=== PATIENT | female | born 1995 | race Caucasian/White ===

== ENCOUNTER 2018-10-29 13:43 | Emergency (ER) | payer OTHER ==
[~2018-10-29] VITALS: Ht 157.5 cm; Wt 52.6 kg
[2018-10-29 14:01] VITALS: Ht 157.5 cm; Wt 52.6 kg
[2018-10-29 14:28] LABS: BASOPHIL % 0.2 % (0-2); PLATELET COUNT 236 x10^3mcL (130-400); RED CELL DISTRIBUTION WIDTH 14.3 % (11.5-14.5)
[2018-10-29 17:08] VITALS: BP 103/60
== END 2018-10-29 17:08 | disposition home or self-care (01) ==
LOC: ED 13:43
DX: O26.892 Other specified pregnancy related conditions, second trimester (principal); R10.9 Unspecified abdominal pain; Z3A.20 20 weeks gestation of pregnancy
CPT/HCPCS: 36415